=== PATIENT | male | born 1930 | race Caucasian/White ===

== ENCOUNTER 2016-10-24 12:53 | Emergency (ER) | payer OTHER ==
[~2016-10-24] VITALS: Ht 170.2 cm; Wt 74.9 kg
[~2016-10-24 12:53] MED LIST: AMIT25 PO; ATEN1TAB74 PO; FENO200C PO; GUAI600 PO; LEVO50TA51 PO; LEVO750T33 PO; LOVA40TA OR; OMEP20CA5 PO; ST JTAB PO; TAMS0.4C67 PO
[2016-10-24 12:56] VITALS: BP 107/65; PULSE 75; RESP 18; TEMP 99.1; O2SAT 95
--- NOTE | 2016-10-24 13:12 | PD ---
HPI Chief Complaint: Skin Problem Time Seen by Provider: 13:07 Travel History International Travel<30 days: No Contact w/Intl Traveler<30days: No Traveled to known affect area: No History of Present Illness HPI Patient is an 85-year-old male presenting with left forearm skin tear. Approximately one hour prior to exam the patient was walking in his bedroom and there was a chief sitting in a door that he brushed up against. This caused a skin tear. He denies any significant pain or weakness or paresthesia. Bleeding was minimal. He is on aspirin 81 mg daily. Last tetanus greater than 5 years. PFSH Past Medical History AAA: Yes Blood Disorders: No Depression: Yes Cancer: No Cardiovascular Problems: No High Cholesterol: Yes Coronary Artery Disease: Yes Diabetes: Yes Diminished Hearing: No Endocrine: No Gastrointestinal Disorders: Yes (hx of bleeding ulcers years ago,current gerd) GERD: Yes Genitourinary: No Hepatitis: No Hiatal Hernia: No Hypertension: Yes Immune Disorder: No Implanted Vascular Access Dvce: No Musculoskeletal: Yes (arthritis in the neck) Neurologic: No Psychiatric: No Reproductive: No Respiratory: No Immunizations Current: Yes Pneumonia: Yes Thyroid Disease: Yes Past Surgical History Abdominal Surgery: Yes ([place], HERNIA) AICD: No Cholecystectomy: Yes Joint Replacement: No Pacemaker: No Tonsillectomy: Yes Other Surgery: Yes (LT LUNG DRAINED A CHILD) Social History Alcohol Use: No Tobacco Use: No Substance Use: No Allergies-Medications (Allergen,Severity, Reaction): Coded Allergies: No Known Allergies (Verified , 10/24/16) Reported Meds & Prescriptions Reported Meds & Active Scripts Active Levofloxacin 750 Mg Tab 750 Mg PO DAILY 7 Days Mucinex 600 Mg Tab (Guaifenesin) 600 Mg Tabcr 600 Mg PO BID PRN Reported Flomax (Tamsulosin HCl) 0.4 Mg Cap 0.4 Mg PO DAILY Aspirin Ec Low Dose (Aspirin) 81 Mg Tab 81 Mg PO DAILY Elavil 25 Mg Tab (Amitriptyline Hcl) 25 Mg Tab 50 Mg PO DAILY Lovastatin 40 Mg Tab 80 Mg OR HS Fenofibrate Micronized (Fenofibrate) 200 Mg Cap 67 Mg PO DAILY Levoxyl (Levothyroxine Sodium) 50 Mcg Tab 50 Mcg PO DAILY Prilosec 20 mg (Omeprazole) 20 Mg Capcr 20 Mg PO DAILY Tenormin (Atenolol) 50 Mg Tab 25 Mg PO DAILY Review of Systems Musculoskeletal: No: Limited ROM Skin: Positive Other (see the history of present illness) Neurologic: No: Weakness, Focal Abnormalities, Paresthesia, Sensory Disturbance Physical Exam Narrative GENERAL: Well-developed and well-nourished adult male in no acute distress. SKIN: 4 cm curvilinear superficial skin tear to the left mid forearm. Hemostasis achieved. No deep structures are visible. No contaminants. Warm and dry. Good turgor without tenting. HEAD: Normocephalic and atraumatic. CARDIOVASCULAR: Regular rate and rhythm without murmurs, rubs, clicks or gallops. Radial pulses 2+ bilaterally. Capillary refill less than 3 seconds distal tip of all fingers of left hand. RESPIRATORY: Clear to auscultation bilaterally with symmetrical rise and fall, no distress or use of accessory muscles. MUSCULOSKELETAL: Skin tear per above. No ecchymosis, erythema, edema or warmth. Normal range of motion of left elbow, wrist and fingers. No gait disturbances. Patient freely moving all four extremities spontaneously. Extremities without clubbing, cyanosis, or edema. No obvious deformities. NEUROLOGIC: CN II-XII grossly intact. Awake and alert. Motor grossly within normal limits. Sensation intact distal tip of all fingers of left hand. Normal speech. PSYCHIATRIC: Appropriate mood and affect; insight and judgment normal. Data Data Last Documented VS Vital Signs Date Time Temp Pulse Resp B/P Pulse Ox O2 Delivery O2 Flow Rate FiO2 10/24/16 12:56 99.1 75 18 107/65 95 Orders Tetanus/Diphtheria Tox Adult (Tetanus/Di (10/24/16 13:15) MDM Medical Decision Making Medical Screen Exam Complete: Yes Emergency Medical Condition: Yes Differential Diagnosis Skin tear versus laceration versus abrasion Narrative Course Patient's 85-year-old male presenting with a fresh superficial skin tear without avulsion to the left midforearm. No contaminants or signs of neurovascular or orthopedic injury. Tetanus vaccine abated. Wound was cleansed and Steri-Strips and dressing applied.See discharge paperwork for further instructions. The plan was discussed with the patient who acknowledged their understanding and agreement. Reinforced the follow-up with primary care is critically important. Patient instructed on emergent conditions that should prompt return to ED. Diagnosis Primary Impression: Skin tear of left forearm without complication Qualified Code: S51.802A - Skin tear of left forearm without complication, initial encounter Patient Instructions: General Instructions, Skin Tear (ED) Additional Instructions: Keep bandage on for 24 hours then change daily Avoid swimming or submerging wound in any water(bath, hightower, pool, ocean, etc) Do not pick at or attempt to remove the Steri-Strips, they will fall off when wound is healed Follow-up with PCP in 2-3 days for wound check Return to the ED for any acute worsening of symptoms including swelling, warmth , spreading redness, pustular drainage, fever Disposition: 01 DISCHARGE HOME Condition: Stable Yeyo Bray III Oct 24, 2016 13:12
[2016-10-24] MEDS ORDERED: TETANUS/DIPHTHERIA TOXOID ADULT 0.5 ML VIAL IM ONE (13:15)
[2016-10-24] MEDS ORDERED: ASPI81CH CHEW (13:18)
[2016-10-24] MEDS ORDERED: CARB100C CHEW (13:18)
[2016-10-24] MEDS ORDERED: TAMS0.4C4 PO (13:18)
[2016-10-24] MEDS ORDERED: SIMV40TA PO (13:18)
[2016-10-24] MEDS ORDERED: LEVO50TA53 PO (13:18)
[2016-10-24] MEDS ORDERED: FENO54TA PO (13:18)
[2016-10-24] MEDS ORDERED: TRAZ50TA12 PO (13:18)
[2016-10-24] MEDS ORDERED: ATEN25TA PO (13:18)
[2016-10-24] MEDS ORDERED: FENO67CA PO (13:18)
[2016-10-24 13:42] VITALS: BP 160/76
== END 2016-10-24 13:43 | disposition home or self-care (01) ==
LOC: PHEFT 12:53
DX: S51.812A Laceration without foreign body of left forearm, initial encounter (principal); E78.00 Pure hypercholesterolemia, unspecified; E11.9 Type 2 diabetes mellitus without complications; I10 Essential (primary) hypertension; Z23 Encounter for immunization; W45.8XXA Other foreign body or object entering through skin, initial encounter; Y93.01 Activity, walking, marching and hiking; Y92.003 Bedroom of unspecified non-institutional (private) residence as the place of occurrence of the external cause
CPT/HCPCS: 90471; 90714

== ENCOUNTER 2016-10-26 10:09 | Emergency (ER) | payer OTHER ==
[~2016-10-26] VITALS: Ht 170.2 cm; Wt 73.1 kg
[~2016-10-26 10:09] MED LIST changes: +ASPI81CH CHEW; +ATEN25TA PO; +CARB100C CHEW; +FENO54TA PO; +FENO67CA PO; +LEVO50TA53 PO; +SIMV40TA PO; +TAMS0.4C4 PO; +TRAZ50TA12 PO
[2016-10-26 10:14] VITALS: BP 121/65; PULSE 60; RESP 16; TEMP 98; O2SAT 96
[2016-10-26] MEDS ORDERED: CEPHALEXIN MONOHYDRATE 500 MG CAP PO ONE (10:30)
[2016-10-26] MEDS ORDERED: CEPH-460 PO (10:31)
--- NOTE | 2016-10-26 10:32 | PD ---
HPI Chief Complaint: Wound/Suture/Staple Re-Check Time Seen by Provider: 10:20 Travel History International Travel<30 days: No Contact w/Intl Traveler<30days: No Traveled to known affect area: No History of Present Illness HPI 85-year-old male here for evaluation of wound check to left forearm skin tear. The patient was seen in the emergency department 2 days ago when he initially sustained a skin tear. The wound was irrigated and Steri-Strips were applied. Tetanus was updated at that time. The patient change the dressing today and noticed that the wound was bleeding. He could get the bleeding to stop, so he decided to present to the emergency department. He denies fevers or chills. There is mild tenderness to the wound. He takes a baby aspirin a day. No other antiplatelets or anticoagulants. No paresthesias or motor deficits. PFSH Past Medical History Hx Anticoagulant Therapy: Yes (81 MG ASA) AAA: Yes Blood Disorders: No Depression: Yes Cancer: No Cardiovascular Problems: Yes (HTN) High Cholesterol: Yes Coronary Artery Disease: Yes Diabetes: Yes Diminished Hearing: No Endocrine: No Gastrointestinal Disorders: Yes (hx of bleeding ulcers years ago,current gerd) GERD: Yes Genitourinary: No Hepatitis: No Hiatal Hernia: No Hypertension: Yes Immune Disorder: No Implanted Vascular Access Dvce: No Musculoskeletal: Yes (arthritis in the neck) Neurologic: No Psychiatric: No Reproductive: No Respiratory: No Immunizations Current: Yes Pneumonia: Yes Thyroid Disease: Yes Influenza Vaccination: Yes ?: Not Past Surgical History Abdominal Surgery: Yes ([place], HERNIA) AICD: No Cholecystectomy: Yes Joint Replacement: No Pacemaker: No Tonsillectomy: Yes Other Surgery: Yes (LT LUNG DRAINED A CHILD) Social History Alcohol Use: No Tobacco Use: No Substance Use: No Allergies-Medications (Allergen,Severity, Reaction): Coded Allergies: No Known Allergies (Verified , 10/26/16) Reported Meds & Prescriptions Reported Meds & Active Scripts Active Keflex (Cephalexin) 500 Mg Cap 500 Mg PO Q8H 10 Days Reported Carbamazepine 100 Mg Chew 100 Mg CHEW BID Simvastatin 40 Mg Tab 40 Mg PO HS Trazodone (Trazodone HCl) 50 Mg Tab 25 Mg PO HS Fenofibrate 54 Mg Tab 54 Mg PO HS Tamsulosin (Tamsulosin HCl) 0.4 Mg Cap 0.4 Mg PO HS Levoxyl (Levothyroxine Sodium) 50 Mcg Tab 50 Mcg PO DAILY Fenofibrate Micronized 67 Mg Cap 67 Mg PO DAILY Atenolol 25 Mg Tab 25 Mg PO DAILY Aspirin 81 Mg Chew 81 Mg CHEW DAILY Review of Systems Except as stated in HPI: all other systems reviewed are Neg Physical Exam Narrative GENERAL: Pleasant, well-developed, well-nourished, comfortable, no acute distress. SKIN: Left mid/posterior forearm skin tear with Steri-Strips in place with mild surrounding warmth and erythema, no purulent drainage, no fluctuance or induration. No signs of lymphangitis. No active bleeding. Edges are loosely approximated. CARDIOVASCULAR: Regular rate and rhythm. Bilateral distal radial pulses are brisk and equal. RESPIRATORY: No accessory muscle use. Clear to auscultation. Breath sounds equal bilaterally. GASTROINTESTINAL: Abdomen soft, non-tender, nondistended. Hepatic and splenic margins not palpable. MUSCULOSKELETAL: Skin exam as above. No obvious deformities. No clubbing. No cyanosis. No edema. NEUROLOGICAL: Awake and alert. No obvious cranial nerve deficits. Motor grossly within normal limits. Normal speech. Normal motor/sensation to left upper extremity. PSYCHIATRIC: Appropriate mood and affect; insight and judgment normal. Data Data Last Documented VS Vital Signs Date Time Temp Pulse Resp B/P Pulse Ox O2 Delivery O2 Flow Rate FiO2 10/26/16 10:14 98.0 60 16 121/65 96 Orders Cephalexin (Keflex) (10/26/16 10:30) [facility] Medical Decision Making Medical Screen Exam Complete: Yes Emergency Medical Condition: Yes Medical Record Reviewed: Yes Differential Diagnosis Cellulitis, wound infection Narrative Course Vital signs are within normal limits. The patient has a left forearm wound with Steri-Strips in place, placed 2 days ago. There is no active bleeding to the wound. There does appear to be mild cellulitis. No fluctuance or induration. No purulent drainage. Wound edges were loosely approximated. Left arm is neurovascularly intact. At this point my plan is to start the patient on Keflex. Steri-Strips will remain in place. His tetanus was updated 2 days ago. Patient was informed on when to return to the emergency department. PMD follow-up this week. He verbalizes understanding and agreement with plan. Diagnosis Primary Impression: Cellulitis of left forearm Referrals: Primary Care Physician 3 days Additional Instructions: Follow-up with your primary care physician in the next 3 days. Take antibiotics as prescribed. Do not remove Steri-Strips. They will fall off on their own. Do not submerge wound under water. Return to the emergency department for worsening symptoms or any other concerns as discussed. Scripts Cephalexin (Keflex)500 Mg [id number] Mg PO Q8H 10 Days Ref 0 Prov:Dg Wu MD 10/26/16 Dg Wu MD Oct 26, 2016 10:31
== END 2016-10-26 10:45 | disposition home or self-care (01) ==
LOC: PHED 10:09
DX: L03.114 Cellulitis of left upper limb (principal); Z79.82 Long term (current) use of aspirin; F32.9 Major depressive disorder, single episode, unspecified; I10 Essential (primary) hypertension; E78.00 Pure hypercholesterolemia, unspecified; E11.9 Type 2 diabetes mellitus without complications
CPT/HCPCS: 99282

== ENCOUNTER 2017-03-06 08:56 | Emergency (ER) | payer MEDICARE ==
[~2017-03-06] VITALS: Ht 167.6 cm; Wt 77.0 kg
[~2017-03-06 08:56] MED LIST changes: -AMIT25 PO; -ATEN1TAB74 PO; +CEPH-460 PO; -FENO200C PO; -GUAI600 PO; -LEVO50TA51 PO; -LEVO750T33 PO; -LOVA40TA OR; -OMEP20CA5 PO; -ST JTAB PO; -TAMS0.4C67 PO
[2017-03-06 09:03] VITALS: BP 115/66; PULSE 78; RESP 18; TEMP 99.4; O2SAT 94
[2017-03-06] MEDS ORDERED: TIZA2CAP3 PO (09:26)
[2017-03-06] MEDS ORDERED: TRAZ300T2 PO (09:26)
[2017-03-06] MEDS ORDERED: SODIUM CHLORIDE 0.9% FLUSH 10 ML FLUSH IVF PRN (09:30)
[2017-03-06 09:34] VITALS: O2SAT 95
--- NOTE | 2017-03-06 09:37 | PD ---
HPI Chief Complaint: General Weakness Time Seen by Provider: 09:21 Travel History International Travel<30 days: No Contact w/Intl Traveler<30days: No Traveled to known affect area: No History of Present Illness HPI This patient woke up this morning feeling weak. His weakness was generalized and lasted about an hour or so. He says that he feels like his weakness has resolved. While he was feeling weak he spoke with his daughter over the phone. He told her that he wasn't feeling so well and she called 911 and had the ambulance picked him up and bring him here for evaluation. He says he didn't feel like that was really needed. He has a temp of 99.4 but denies knowledge of fever. He has had a cough producing phlegm for the last couple of days. He lives with a roommate who is also coughing. He is not having any pain. No slurring of speech or confusion reported. Some severity is moderate. No alleviating factors. Duration of symptoms 2 days PFSH Past Medical History Hx Anticoagulant Therapy: Yes (81 MG ASA) AAA: Yes Blood Disorders: No Depression: Yes Cancer: No Cardiovascular Problems: Yes (HTN) High Cholesterol: Yes Coronary Artery Disease: Yes Diabetes: Yes Patient Takes Glucophage: No Diminished Hearing: No Endocrine: No Gastrointestinal Disorders: Yes (hx of bleeding ulcers years ago,current gerd) GERD: Yes Genitourinary: No Hepatitis: No Hiatal Hernia: No Hypertension: Yes Immune Disorder: No Implanted Vascular Access Dvce: No Insomnia: Yes Musculoskeletal: Yes (arthritis in the neck) Neurologic: No Psychiatric: No Reproductive: No Respiratory: No Immunizations Current: Yes Pneumonia: Yes Thyroid Disease: Yes Tetanus Vaccination: < 5 Years Influenza Vaccination: Yes Past Surgical History Abdominal Surgery: Yes ([place], HERNIA) AICD: No Cholecystectomy: Yes Joint Replacement: No Pacemaker: No Tonsillectomy: Yes Other Surgery: Yes (LT LUNG DRAINED A CHILD) Social History Alcohol Use: No Tobacco Use: No Substance Use: No Allergies-Medications (Allergen,Severity, Reaction): Coded Allergies: No Known Allergies (Verified , 03/06/17) Reported Meds & Prescriptions Reported Meds & Active Scripts Active Reported Trazodone (Trazodone HCl) 300 Mg Tab 25 Mg PO HS PRN Tizanidine (Tizanidine HCl) 2 Mg Cap 1 Mg PO HS PRN Carbamazepine 100 Mg Chew 100 Mg CHEW BID Simvastatin 40 Mg Tab 40 Mg PO HS Tamsulosin (Tamsulosin HCl) 0.4 Mg Cap 0.4 Mg PO HS Levoxyl (Levothyroxine Sodium) 50 Mcg Tab 50 Mcg PO DAILY Fenofibrate Micronized 67 Mg Cap 67 Mg PO DAILY Atenolol 25 Mg Tab 25 Mg PO DAILY Aspirin 81 Mg Chew 81 Mg CHEW DAILY Review of Systems General / Constitutional: No: Fever Eyes: No: Visual changes HENT: No: Headaches Cardiovascular: No: Chest Pain or Discomfort Respiratory: Positive: Cough, No: Shortness of Breath Gastrointestinal: No: Abdominal Pain Genitourinary: No: Dysuria Musculoskeletal: Positive: Weakness, No: Pain Skin: No Rash Neurologic: Positive: Weakness Psychiatric: No: Depression Endocrine: No: Polydipsia Hematologic/Lymphatic: No: Easy Bruising Physical Exam Narrative GENERAL: Well-nourished, well-developed patient in no apparent distress. SKIN: Focused skin assessment reveals no rash and nodules. Skin is Warm and dry. HEAD: Atraumatic. Normocephalic. EYES: Pupils equal and round. No scleral icterus. No injection or drainage. ENT: No nasal bleeding or discharge. Mucous membranes pink and moist. NECK: Trachea midline. No JVD. CARDIOVASCULAR: Regular rate and rhythm. No murmur appreciated. RESPIRATORY: No accessory muscle use. Clear to auscultation. Breath sounds equal bilaterally. GASTROINTESTINAL: Abdomen soft, non-tender, nondistended. Hepatic and splenic margins not palpable. MUSCULOSKELETAL: No obvious deformities. No clubbing. No cyanosis. No edema. NEUROLOGICAL: Awake and alert. No obvious cranial nerve deficits. Motor grossly within normal limits. Normal speech. PSYCHIATRIC: Appropriate mood and affect; insight and judgment normal. Data Data Last Documented VS Vital Signs Date Time Temp Pulse Resp B/P Pulse Ox O2 Delivery O2 Flow Rate FiO2 03/06/17 11:23 73 15 124/66 95 Room Air 03/06/17 09:03 99.4 Orders Electrocardiogram (03/06/17 ) Electrocardiogram (03/06/17 09:21) Basic Metabolic Panel (Bmp) (03/06/17 09:21) Ckmb (Isoenzyme) Profile (03/06/17 09:21) Complete Blood Count With Diff (03/06/17 09:21) Troponin I (03/06/17 09:21) Chest, Single Ap (03/06/17 09:21) Ecg Monitoring (03/06/17 09:21) Iv Access Insert/Monitor (03/06/17 09:21) Oximetry (03/06/17 09:21) Sodium Chloride 0.9% Flush (Ns Flush) (03/06/17 09:30) Urinalysis - C+S If Indicated (03/06/17 09:21) Carbamazepine (Tegretol) (03/06/17 09:21) CKMB (03/06/17 09:20) CKMB% (03/06/17 09:20) Labs Laboratory Tests Test 03/06/17 03/06/17 09:20 10:40 White Blood Count 11.3 TH/MM3 Red Blood Count 4.27 MIL/MM3 Hemoglobin 12.9 GM/DL Hematocrit 38.5 % Mean Corpuscular Volume 90.2 FL Mean Corpuscular Hemoglobin 30.3 PG Mean Corpuscular Hemoglobin 33.6 % Concent Red Cell Distribution Width 13.1 % Platelet Count 180 TH/MM3 Mean Platelet Volume 10.4 FL Neutrophils (%) (Auto) 83.9 % Lymphocytes (%) (Auto) 7.5 % Monocytes (%) (Auto) 7.6 % Eosinophils (%) (Auto) 0.7 % Basophils (%) (Auto) 0.3 % Neutrophils # (Auto) 9.5 TH/MM3 Lymphocytes # (Auto) 0.8 TH/MM3 Monocytes # (Auto) 0.9 TH/MM3 Eosinophils # (Auto) 0.1 TH/MM3 Basophils # (Auto) 0.0 TH/MM3 CBC Comment DIFF FINAL Differential Comment Sodium Level 136 MEQ/L Potassium Level 4.3 MEQ/L Chloride Level 104 MEQ/L Carbon Dioxide Level 24.9 MEQ/L Anion Gap 7 MEQ/L Blood Urea Nitrogen 15 MG/DL Creatinine 1.31 MG/DL Estimat Glomerular Filtration 52 ML/MIN Rate Random Glucose 124 MG/DL Calcium Level 8.6 MG/DL Total Creatine Kinase 114 U/L Creatine Kinase MB LESS THAN 0.5 NG/ML Troponin I LESS THAN 0.02 NG/ML Carbamazepine (Tegretol) Level LESS THAN 0.5 MCG/ML Urine Color YELLOW Urine Turbidity HAZY Urine pH 8.0 Urine Specific [place] 1.014 Urine Protein NEG mg/dL Urine Glucose (UA) NEG mg/dL Urine Ketones NEG mg/dL Urine Occult Blood NEG Urine Nitrite NEG Urine Bilirubin NEG Urine Urobilinogen LESS THAN 2.0 MG/DL Urine Leukocyte Esterase NEG Urine WBC LESS THAN 1 /hpf Urine Squamous Epithelial <1 /hpf Cells Urine Amorphous Sediment RARE Urine Bacteria RARE /hpf Urine Mucus FEW /lpf Microscopic Urinalysis Comment CULT NOT INDICATED MDM Medical Decision Making Medical Screen Exam Complete: Yes Emergency Medical Condition: Yes Medical Record Reviewed: Yes Differential Diagnosis Pneumonia, bronchitis, flu syndrome Narrative Course I have reviewed the patient's electronic medical record. Patient was here last October 2016 for cellulitis IV placed CBC is normal Metabolic profile is normal CK is normal Troponin is normal I reviewed his EKG which shows sinus rhythm with ectopy but no ST elevation I reviewed his chest x-ray which shows a minor infiltrate in the left base. Patient is neurologically normal and no sign of CVA. Stable for outpatient follow-up. Zithromax prescribed for his cough and minor infiltrate Diagnosis Primary Impression: Bronchopneumonia Additional Instructions: The patient was advised to follow up with their physician and return if they worsen. Med/Other Pt SpecificInfo: Prescription(s) given Scripts Azithromycin (Zithromax Z-Wojciech)250 Mg [id number] Mg PO DIRECTED #1 DSPK Ref 0 500 MG (2 tabs) day 1, then 1 tab days 2-5. Prov:Karel Jhaveri MD 03/06/17 Disposition: DISCHARGE HOME Condition: Stable Karel Jhaveri MD March 06, 2017 09:36
[2017-03-06 09:39] LABS: AUTOMATED NEUTROPHIL # 9.5 TH/MM3 (1.8-7.7); BASOPHIL % 0.3 % (0.0-2.0); EOSINOPHIL # 0.1 TH/MM3 (0-0.4); EOSINOPHIL % 0.7 % (0.0-4.0); HEMATOCRIT 38.5 % (39.0-51.0); HEMO FLAGS DIFF FINAL; LYMPH % 7.5 % (9.0-44.0); LYMPHOCYTE # 0.8 TH/MM3 (1.0-4.8); MEAN CELL VOLUME 90.2 FL (80.0-100.0); MEAN CORPUSCULAR HEMOGLOBIN 30.3 PG (27.0-34.0); MEAN CORPUSCULAR HGB CONC 33.6 % (32.0-36.0); MONO % 7.6 % (0.0-8.0); NEUT % 83.9 % (16.0-70.0); PLATELET COUNT 180 TH/MM3 (150-450); RED BLOOD COUNT 4.27 MIL/MM3 (4.50-5.90); RED CELL DISTRIBUTION WIDTH 13.1 % (11.6-17.2); WHITE BLOOD COUNT 11.3 TH/MM3 (4.0-11.0)
--- NOTE | 2017-03-06 09:44 | RADRPT ---
EXAM DATE/TIME: 03/06/2017 09:25 [facility] COMPARISON: CHEST SINGLE AP, July 28, 2016, 20:55. INDICATIONS : Fever, weakness MEDICAL HISTORY : None. SURGICAL HISTORY : Coronary artery stent. ENCOUNTER: Initial ACUITY: 1 day PAIN SCORE: 0/10 LOCATION: Bilateral chest FINDINGS: Mild basilar parenchymal opacity on the left. No evidence of effusion. Cardiac contours are satisfact ory. CONCLUSION: Slight left base infiltrate Yeyo Campos MD on March 06, 2017 at 9:42 Board Certified Radiologist. This report was verified electronically.
[2017-03-06 09:56] LABS: ANION GAP 7 MEQ/L (5-15); BICARBONATE 24.9 MEQ/L (21.0-32.0); BLOOD UREA NITROGEN 15 MG/DL (7-18); CHLORIDE 104 MEQ/L (98-107); GLOMERULAR FILTRATION RATE 52 ML/MIN (>89); POTASSIUM 4.3 MEQ/L (3.5-5.1); SODIUM (NA) 136 MEQ/L (136-145)
[2017-03-06 10:00] LABS: CREATINE KINASE 114 U/L (39-308)
[2017-03-06 10:12] LABS: CKMB LESS THAN 0.5 NG/ML (0.5-3.6)
[2017-03-06 10:52] LABS: BACTERIA, URINE RARE /hpf; BLOOD, URINE NEG (NEG); COMMENT (UR) CULT NOT INDICATED; CULTURE IF INDICATED CULT NOT INDICATED; GLUCOSE,URINE NEG (NEG); KETONE, URINE NEG (NEG); MUCUS URINE FEW /lpf (OCC); NITRITE,URINE NEG (NEG); SQUAMOUS EPITHELIAL CELL URINE <1 /hpf (0-5); URINE COLOR YELLOW (YELLW/STRAW)
[2017-03-06 11:23] VITALS: BP 124/66; PULSE 73; RESP 15; O2SAT 95
[2017-03-06] MEDS ORDERED: ZITHTAB PO (11:54)
--- NOTE | 2017-03-06 16:39 | EKG ---
Date Performed: 03/06/2017 Time Performed: 09:16:19 PTAGE: 86 years EKG: PROBABLE Sinus rhythm WITH FIRST DEGREE AV BLOCK WITH OCCASIONAL VENTRICULAR PREMATURE COMPLEXES LEFT ANTERIOR FASCICULAR BLOCK LEFT VENTRICULAR HYPERTROPHY AND ST-T CHANGE PREVIOUS TRACING : 04/22/2013 11.25 Compared to the previous tracing, change in QRS trans ition/poor R wave progression DOCTOR: Blayne Scott Interpretating Date/Time 03/06/2017 16:38:24
== END 2017-03-06 12:53 | disposition home or self-care (01) ==
LOC: NEPC 08:56
DX: J18.0 Bronchopneumonia, unspecified organism (principal); R05 Cough; R50.9 Fever, unspecified; I10 Essential (primary) hypertension; E11.9 Type 2 diabetes mellitus without complications; Z79.01 Long term (current) use of anticoagulants; R94.31 Abnormal electrocardiogram [ECG] [EKG]
CPT/HCPCS: 71010; 80048; 80156; 81001; 82550; 82552; 84484; 85025; 93005; 99285

== ENCOUNTER 2017-07-22 10:47 | Inpatient (IN) | payer MEDICARE ==
[~2017-07-22] VITALS: Ht 170.2 cm; Wt 72.0 kg
[2017-07-22] VITALS (8 sets, daily range): BP systolic 150–194; BP diastolic 81–107; PULSE 77–88; RESP 16–20; TEMP 97.6–98.4; O2SAT 94–99
[~2017-07-22 10:47] MED LIST changes: -CEPH-460 PO; -FENO54TA PO; +TIZA2CAP3 PO; +TRAZ300T2 PO; -TRAZ50TA12 PO; +ZITHTAB PO
[2017-07-22] MEDS: SODIUM CHLORIDE 0.9% FLUSH 5 ML FLUSH IV FLUSH PRN ×2 (11:09→11:50)
--- NOTE | 2017-07-22 11:19 | RADRPT ---
EXAM DATE/TIME: 07/22/2017 11:11 [facility] COMPARISON: CHEST SINGLE AP, March 06, 2017, 9:25. INDICATIONS : Palpitations and shortness of breath. MEDICAL HISTORY : None. SURGICAL HISTORY : Coronary artery stent. ENCOUNTER: Initial ACUITY: 1 day PAIN SCORE: 3/10 LOCATION: Bilateral chest FINDINGS: A single view of the chest demonstrates the lungs to be symmetrically aerated without evidence of mas s, infiltrate or effusion. The cardiomediastinal contours are unremarkable. Osseous structures are intact. CONCLUSION: No acute disease. Mitchell Roque MD on July 22, 2017 at 11:17 Board Certified Radiologist. This report was verified electronically.
[2017-07-22] MEDS ORDERED: ONDANSETRON HCL 4 MG/2 ML VIAL IV PUSH ONE (11:45)
[2017-07-22 11:51] LABS: AUTOMATED NEUTROPHIL # 6.1 TH/MM3 (1.8-7.7); BASOPHIL % 0.3 % (0.0-2.0); EOSINOPHIL # 0.1 TH/MM3 (0-0.4); EOSINOPHIL % 1.1 % (0.0-4.0); HEMO FLAGS DIFF FINAL; LYMPH % 15.3 % (9.0-44.0); LYMPHOCYTE # 1.2 TH/MM3 (1.0-4.8); MEAN CELL VOLUME 90.9 FL (80.0-100.0); MEAN CORPUSCULAR HEMOGLOBIN 30.8 PG (27.0-34.0); MEAN CORPUSCULAR HGB CONC 33.9 % (32.0-36.0); MONO % 8.6 % (0.0-8.0); NEUT % 74.7 % (16.0-70.0); PLATELET COUNT 165 TH/MM3 (150-450); RED BLOOD COUNT 4.51 MIL/MM3 (4.50-5.90); RED CELL DISTRIBUTION WIDTH 12.8 % (11.6-17.2); WHITE BLOOD COUNT 8.1 TH/MM3 (4.0-11.0)
[2017-07-22 12:00] LABS: APTT (PATIENT) 25.9 SEC (24.3-30.1); PROTHROMBIN TIME - PATIENT 10.9 SEC (9.8-11.6)
--- NOTE | 2017-07-22 12:05 | RADRPT ---
EXAM DATE/TIME: 07/22/2017 11:34 [facility] COMPARISON: CT BRAIN W/O CONTRAST, March 24, 2010, 15:32. INDICATIONS : Altered mental status. RADIATION DOSE: 37.54 CTDIvol (mGy) MEDICAL HISTORY : Cardiovascular disease. Diabetes mellitus type 2. Hypertension. SURGICAL HISTORY : Cholecystectomy. ENCOUNTER: Initial ACUITY: 1 day PAIN SCALE: 0/10 LOCATION: cranial TECHNIQUE: Multiple contiguous axial images were obtained of the head. Using automated exposure control and adj ustment of the mA and/or kV according to patient size, radiation dose was kept as low as reasonably a chievable to obtain optimal diagnostic quality images. DICOM format image data is available electro nically for review and comparison. FINDINGS: Advanced describe disease of the proximal intracranial vessels is again noted. There is arteriomegaly with calcific plaquing. The brain is stable without evidence of acute infarct or hemorrhage. There is no evidence of mass effect or edema. Extra-axial structures are unremarkable. CONCLUSION: Stable evaluation of the brain without evidence of acute infarct, hemorrhage, mass or edema. 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 This report was verified electronically.
[2017-07-22 12:07] LABS: BACTERIA, URINE RARE /hpf; BLOOD, URINE SMALL (NEG); COMMENT (UR) CATH-CULT NOT IND; CULTURE IF INDICATED CATH CULTURE NOT IND; GLUCOSE,URINE NEG (NEG); HYALINE CAST, URINE 1 /lpf (RARE); KETONE, URINE NEG (NEG); MUCUS URINE FEW /lpf (OCC); NITRITE,URINE NEG (NEG); PH, URINE 6.5 (5.0-8.5); URINE COLOR YELLOW (YELLW/STRAW)
--- NOTE | 2017-07-22 12:07 | PD ---
HPI Chief Complaint: Neuro Symptoms/ Deficits Time Seen by Provider: 10:55 Travel History International Travel<30 days: No Contact w/Intl Traveler<30days: No Traveled to known affect area: No History of Present Illness HPI 86 y/o male presents with change in mentation was last seen normal last night. Here he is repetitive and can state his name but cannot provide me with any history here. Report by the ambulance team was that he is normally alert and oriented. History is significantly limited. PFSH Past Medical History Hx Anticoagulant Therapy: Yes (ASA) AAA: Yes Blood Disorders: No Depression: Yes Cancer: No Cardiovascular Problems: Yes High Cholesterol: Yes Coronary Artery Disease: Yes Diabetes: Yes Diminished Hearing: No Endocrine: No Gastrointestinal Disorders: Yes (hx of bleeding ulcers years ago,current gerd) GERD: Yes Genitourinary: No Hepatitis: No Hiatal Hernia: No Hypertension: Yes Immune Disorder: No Implanted Vascular Access Dvce: No Insomnia: Yes Musculoskeletal: Yes (arthritis in the neck) Neurologic: No Psychiatric: No Reproductive: No Respiratory: No Immunizations Current: Yes Pneumonia: Yes Thyroid Disease: Yes Tetanus Vaccination: < 5 Years Influenza Vaccination: Yes Past Surgical History Abdominal Surgery: Yes ([place], HERNIA) AICD: No Cholecystectomy: Yes Joint Replacement: No Pacemaker: No Tonsillectomy: Yes Other Surgery: Yes (LT LUNG DRAINED A CHILD) Social History Alcohol Use: No Tobacco Use: No Substance Use: No Allergies-Medications (Allergen,Severity, Reaction): Coded Allergies: No Known Allergies (Verified , 07/22/17) Reported Meds & Prescriptions Reported Meds & Active Scripts Active Reported Trazodone (Trazodone HCl) 300 Mg Tab 25 Mg PO HS PRN Tizanidine (Tizanidine HCl) 2 Mg Cap 1 Mg PO HS PRN Carbamazepine 100 Mg Chew 100 Mg CHEW BID Simvastatin 40 Mg Tab 40 Mg PO HS Tamsulosin (Tamsulosin HCl) 0.4 Mg Cap 0.4 Mg PO HS Levoxyl (Levothyroxine Sodium) 50 Mcg Tab 50 Mcg PO DAILY Fenofibrate Micronized 67 Mg Cap 67 Mg PO DAILY Aspirin 81 Mg Chew 81 Mg CHEW DAILY Review of Systems Except as stated in HPI: all other systems reviewed are Neg Physical Exam Exam Limitations: Poor Historian Narrative GENERAL: Well-nourished, well-developed patient. SKIN: Warm and dry. HEAD: Normocephalic and atraumatic. EYES: No injection or drainage. ENT: No nasal drainage noted. NECK: Supple, trachea midline. CARDIOVASCULAR: Regular rate and rhythm RESPIRATORY: Breath sounds equal bilaterally. No accessory muscle use. GASTROINTESTINAL: Abdomen soft,nondistended. NEUROLOGICAL: Awake, alert to name. Motor and sensory grossly within normal limits. When you ask him any question he will just state his name Data Data Last Documented VS Vital Signs Date Time Temp Pulse Resp B/P (MAP) Pulse Ox O2 Delivery O2 Flow Rate FiO2 07/22/17 12:09 97.8 80 17 194/89 (124) 98 Room Air Orders Orders Electrocardiogram (07/22/17 ) Electrocardiogram (07/22/17 10:59) Ammonia (07/22/17 10:59) Complete Blood Count With Diff (07/22/17 10:59) Comprehensive Metabolic Panel (07/22/17 10:59) Creatine Kinase (Cpk) (07/22/17 10:59) Prothrombin Time / Inr (Pt) (07/22/17 10:59) Act Partial Throm Time (Ptt) (07/22/17 10:59) Troponin I (07/22/17 10:59) Thyroid Stimulating Hormone (07/22/17 10:59) Urinalysis - C+S If Indicated (07/22/17 10:59) Lactic Acid Sepsis Protocol (07/22/17 10:59) Blood Culture (07/22/17 10:59) Chest, Single Ap (07/22/17 10:59) Ct Brain W/O Iv Contrast(Rout) (07/22/17 10:59) Blood Glucose (07/22/17 10:59) Ecg Monitoring (07/22/17 10:59) Iv Access Insert/Monitor (07/22/17 10:59) Oximetry (07/22/17 10:59) Urinary Catheter Insert/Apply (07/22/17 10:59) Sodium Chloride 0.9% Flush (Ns Flush) (07/22/17 11:00) Ondansetron Inj (Zofran Inj) (07/22/17 11:45) Aspirin (Aspirin) (07/22/17 12:30) Admit Order (Ed Use Only) (07/22/17 12:42) Labs Laboratory Tests Test 07/22/17 11:11 07/22/17 11:15 Lactic Acid Level 1.4 mmol/L Ammonia 22 MCMOL/L White Blood Count 8.1 TH/MM3 Red Blood Count 4.51 MIL/MM3 Hemoglobin 13.9 GM/DL Hematocrit 41.0 % Mean Corpuscular Volume 90.9 FL Mean Corpuscular Hemoglobin 30.8 PG Mean Corpuscular Hemoglobin Concent 33.9 % Red Cell Distribution Width 12.8 % Platelet Count 165 TH/MM3 Mean Platelet Volume 10.4 FL Neutrophils (%) (Auto) 74.7 % Lymphocytes (%) (Auto) 15.3 % Monocytes (%) (Auto) 8.6 % Eosinophils (%) (Auto) 1.1 % Basophils (%) (Auto) 0.3 % Neutrophils # (Auto) 6.1 TH/MM3 Lymphocytes # (Auto) 1.2 TH/MM3 Monocytes # (Auto) 0.7 TH/MM3 Eosinophils # (Auto) 0.1 TH/MM3 Basophils # (Auto) 0.0 TH/MM3 CBC Comment DIFF FINAL Differential Comment Prothrombin Time 10.9 SEC Prothromb Time International Ratio 1.0 RATIO Activated Partial Thromboplast Time 25.9 SEC Urine Color YELLOW Urine Turbidity CLEAR Urine pH 6.5 Urine Specific [place] 1.014 Urine Protein 30 mg/dL Urine Glucose (UA) NEG mg/dL Urine Ketones NEG mg/dL Urine Occult Blood SMALL Urine Nitrite NEG Urine Bilirubin NEG Urine Urobilinogen LESS THAN 2.0 MG/DL Urine Leukocyte Esterase NEG Urine RBC 11 /hpf Urine WBC 1 /hpf Urine Bacteria RARE /hpf Urine Hyaline Casts 1 /lpf Urine Mucus FEW /lpf Microscopic Urinalysis Comment CATH-CULT NOT IND Blood Urea Nitrogen 13 MG/DL Creatinine 0.97 MG/DL Random Glucose 111 MG/DL Total Protein 7.6 GM/DL Albumin 4.0 GM/DL Calcium Level 9.1 MG/DL Alkaline Phosphatase 52 U/L Aspartate Amino Transf (AST/SGOT) 26 U/L Alanine Aminotransferase (ALT/SGPT) 17 U/L Total Bilirubin 0.6 MG/DL Sodium Level 136 MEQ/L Potassium Level 3.8 MEQ/L Chloride Level 101 MEQ/L Carbon Dioxide Level 27.5 MEQ/L Anion Gap 8 MEQ/L Estimat Glomerular Filtration Rate 73 ML/MIN Total Creatine Kinase 221 U/L Troponin I LESS THAN 0.02 NG/ML Thyroid Stimulating Hormone 3rd Gen 2.210 uIU/ML MDM Medical Decision Making Medical Screen Exam Complete: Yes Emergency Medical Condition: Yes Medical Record Reviewed: Yes (past history confirmed) Interpretation(s) CBC & BMP Diagram 07/22/17 11:15 Total Protein 7.6, Albumin 4.0, Calcium Level 9.1, Alkaline Phosphatase 52, Aspartate Amino Transf (AST/SGOT) 26, Alanine Aminotransferase (ALT/SGPT) 17, Total Bilirubin 0.6 Last 24 hours Impressions Chest X-Ray 07/22/17 1059 Signed Impressions: Service Date/Time: Saturday, July 22, 2017 11:11 - CONCLUSION: No acute disease. Mitchell Roque MD Last [address] 07/22/17 1059 Signed Impressions: Service Date/Time: Saturday, July 22, 2017 11:34 - CONCLUSION: Stable evaluation of the brain without evidence of acute infarct, hemorrhage, mass or edema. Advanced atherosclerotic vascular disease with arteriomegaly and calcific plaquing Mitchell Roque MD Chest X-Ray 07/22/17 1059 Signed Impressions: Service Date/Time: Saturday, July 22, 2017 11:11 - CONCLUSION: No acute disease. Mitchell Roque MD Differential Diagnosis Bleed, mass, stroke, UTI, hyponatremia Narrative Course Will check blood work, urinalysis, CT brain and monitor ed workup no emergent, daughter updated, agrees to admit, states patient talked with her on the phone yesterday and was acting himself. His roommate checked on him today and when they saw him for the first time today was when he was acting abnormal. Physician Communication Physician Communication dr strong agrees to admit Diagnosis Primary Impression: Altered mental status Qualified Codes: R41.82 - Altered mental status, unspecified Additional Impression: Expressive aphasia Admitting Information Admitting Physician Requests: Observation Mady Holder MD Jul 22, 2017 12:07
[2017-07-22 12:10] LABS: ANION GAP 8 MEQ/L (5-15); AST (GOT) 26 U/L (15-37); BICARBONATE 27.5 MEQ/L (21.0-32.0); BLOOD UREA NITROGEN 13 MG/DL (7-18); CHLORIDE 101 MEQ/L (98-107); GLOMERULAR FILTRATION RATE 73 ML/MIN (>89); POTASSIUM 3.8 MEQ/L (3.5-5.1); SODIUM (NA) 136 MEQ/L (136-145)
[2017-07-22 12:11] LABS: ALT (GPT) 17 U/L (12-78)
[2017-07-22 12:20] LABS: ALKALINE PHOSPHATASE 52 U/L (45-117); CREATINE KINASE 221 U/L (39-308); TOTAL BILIRUBIN ADULT 0.6 MG/DL (0.2-1.0)
[2017-07-22] MEDS ORDERED: ASPIRIN 325 MG TAB PO ONE (12:30)
[2017-07-22] MEDS ORDERED: ENALAPRILAT 1.25 MG/ML VIAL IV PUSH PRN (13:15)
[2017-07-22] MEDS ORDERED: NALOXONE HCL 0.4 MG/ML AMP IV PUSH PRN (13:15)
[2017-07-22] MEDS ORDERED: SODIUM CHLORIDE 0.9% FLUSH 10 ML FLUSH IV FLUSH PRN (13:15)
[2017-07-22] MEDS ORDERED: ACETAMINOPHEN 325 MG TAB PO PRN ×2 (13:15)
--- NOTE | 2017-07-22 14:14 | HHI.HP ---
[facility] Annemarie Benito MD Admission Diagnosis altered mental status Diagnoses: Chief Complaint: Altered mental status Travel History International Travel<30 Days: No Contact w/Intl Traveler <30 Da: No Traveled to Known Affected Are: No History of Present Illness Written by Chon Lisa, acting as scribe for Dr. Treviño on 07/22/17 at 14:14. 86-year-old male with past medical history of HTN, HLD, CAD, hypothyroidism, depression, BPH, pituitary adenoma who presented for altered mental status. Patient is currently oriented to self, but does not know the year or the president. Son-in-law at bedside assists some with history was reviewed and the medical record. The patient is normally quite functional, oriented at baseline and talk to his daughter on the phone last night and was reportedly normal at that time. The patient's roommate found him altered and unable to perform a sentence this morning. Currently the patient keeps stating that he is "not good", but cannot elaborate. No masses he is having any pain he states "I don't know". He denies any shortness of breath, fever, rash. The patient replies with vague answers when asked if he has a headache, chest pain, constipation, or vision changes. The patient's blood pressure was elevated today in the ED. Son-in-law reports patient is compliant with his medications. EMR this shows the patient had a pituitary adenoma in 2008 that he elected against surgery. The patient's son-in-law states that he had a similar episode where he was admitted here about 6 months ago and states that the patient improved after 4 days, unsure what the reason was. Review of Systems Except as stated in HPI: all other systems reviewed are Neg Past Family Social History Past Medical History Hypertension Hyperlipidemia Coronary artery disease Hypothyroidism Depression BPH Pituitary adenoma Past Surgical History Cholecystectomy Hernia repair Tonsillectomy Reported Medications Reported Meds & Active Scripts Active Reported Trazodone (Trazodone HCl) 300 Mg Tab 25 Mg PO HS PRN Tizanidine (Tizanidine HCl) 2 Mg Cap 1 Mg PO HS PRN Carbamazepine 100 Mg Chew 100 Mg CHEW BID Simvastatin 40 Mg Tab 40 Mg PO HS Tamsulosin (Tamsulosin HCl) 0.4 Mg Cap 0.4 Mg PO HS Levoxyl (Levothyroxine Sodium) 50 Mcg Tab 50 Mcg PO DAILY Fenofibrate Micronized 67 Mg Cap 67 Mg PO DAILY Aspirin 81 Mg Chew 81 Mg CHEW DAILY Allergies: Coded Allergies: No Known Allergies (Verified , 07/22/17) Active Ordered Medications Current Medications Medications (Trade) Dose Ordered Sig/Marion Route Start Time Stop Time Status Last Admin (NS Flush) 2 ml UNSCH PRN IV FLUSH 07/22/17 11:00 07/22/17 11:50 (Aspirin Chew) 81 mg DAILY CHEW 07/22/17 13:15 UNV (TEGretol CHEW) 100 mg BID CHEW 07/22/17 21:00 UNV (Synthroid) 50 mcg DAILY PO 07/22/17 13:15 UNV (Flomax) 0.4 mg HS PO 07/22/17 21:00 UNV Non-Formulary Medication 67 mg DAILY PO 07/23/17 09:00 UNV Non-Formulary Medication 40 mg HS PO 07/22/17 21:00 UNV (Apresoline Inj) 10 mg ONCE ONCE IV PUSH 07/22/17 13:15 07/22/17 13:16 UNV Sodium Chloride 1,000 ml @ 75 mls/hr [id number] IV 07/22/17 13:15 UNV (NS Flush) 2 ml UNSCH PRN IV FLUSH 07/22/17 13:15 UNV (NS Flush) 2 ml BID IV FLUSH 07/22/17 21:00 UNV (Tylenol) 650 mg Q4H PRN PO 07/22/17 13:15 UNV (Lovenox Inj) 40 mg Q24H SQ 07/22/17 13:15 UNV (Tylenol) 650 mg Q6H PRN PO 07/22/17 13:15 UNV (Narcan Inj) 0.4 mg UNSCH PRN IV PUSH 07/22/17 13:15 UNV (Marisela-Colace) 1 tab BID PO 07/22/17 21:00 UNV (Vasotec Inj) 1.25 mg Q6H PRN IV PUSH 07/22/17 13:15 UNV Family History Unable to obtain secondary to current mental status Social History No alcohol, tobacco, or drug use Ambulates using a cane Lives with a roommate Physical Exam Vital Signs Vital Signs Date Time Temp Pulse Resp B/P (MAP) Pulse Ox O2 Delivery O2 Flow Rate FiO2 07/22/17 13:53 97.9 77 16 166/81 (109) 99 Room Air 07/22/17 12:09 97.8 80 17 194/89 (124) 98 Room Air 07/22/17 11:06 17 98 Room Air 07/22/17 11:01 87 17 98 Room Air 07/22/17 10:56 97.8 80 17 188/107 (134) 98 Physical Exam GENERAL: Well-developed well-nourished. In no acute distress. Confused and oriented only to self. SKIN: Warm and dry. No lesions noted. HEENT: Normocephalic. Pupils equal and round and reactive to light. Mucous membranes pink and moist. CARDIOVASCULAR: Regular rate and rhythm. No murmur appreciated. RESPIRATORY: No accessory muscle use. Clear to auscultation. Breath sounds equal bilaterally. GASTROINTESTINAL: Abdomen soft, non-tender, nondistended. Bowel sounds x4. MUSCULOSKELETAL: No obvious deformities. No clubbing or cyanosis. No edema. NEUROLOGICAL: Awake and alert. No focal neurological deficits. Moves upper and lower extremities spontaneously. Follow some commands. Not cooperative with strength testing. Normal but somewhat nonsensical speech. PSYCHIATRIC: Appropriate mood and affect; insight and judgment normal. Laboratory Laboratory Tests Test 07/22/17 11:11 07/22/17 11:15 Lactic Acid Level 1.4 Ammonia 22 White Blood Count 8.1 Red Blood Count 4.51 Hemoglobin 13.9 Hematocrit 41.0 Mean Corpuscular Volume 90.9 Mean Corpuscular Hemoglobin 30.8 Mean Corpuscular Hemoglobin Concent 33.9 Red Cell Distribution Width 12.8 Platelet Count 165 Mean Platelet Volume 10.4 Neutrophils (%) (Auto) 74.7 Lymphocytes (%) (Auto) 15.3 Monocytes (%) (Auto) 8.6 Eosinophils (%) (Auto) 1.1 Basophils (%) (Auto) 0.3 Neutrophils # (Auto) 6.1 Lymphocytes # (Auto) 1.2 Monocytes # (Auto) 0.7 Eosinophils # (Auto) 0.1 Basophils # (Auto) 0.0 CBC Comment DIFF FINAL Differential Comment Prothrombin Time 10.9 Prothromb Time International Ratio 1.0 Activated Partial Thromboplast Time 25.9 Urine Color YELLOW Urine Turbidity CLEAR Urine pH 6.5 Urine Specific [place] 1.014 Urine Protein 30 Urine Glucose (UA) NEG Urine Ketones NEG Urine Occult Blood SMALL Urine Nitrite NEG Urine Bilirubin NEG Urine Urobilinogen LESS THAN 2.0 Urine Leukocyte Esterase NEG Urine RBC 11 Urine WBC 1 Urine Bacteria RARE Urine Hyaline Casts 1 Urine Mucus FEW Microscopic Urinalysis Comment CATH-CULT NOT IND Blood Urea Nitrogen 13 Creatinine 0.97 Random Glucose 111 Total Protein 7.6 Albumin 4.0 Calcium Level 9.1 Alkaline Phosphatase 52 Aspartate Amino Transf (AST/SGOT) 26 Alanine Aminotransferase (ALT/SGPT) 17 Total Bilirubin 0.6 Sodium Level 136 Potassium Level 3.8 Chloride Level 101 Carbon Dioxide Level 27.5 Anion Gap 8 Estimat Glomerular Filtration Rate 73 Total Creatine Kinase 221 Troponin I LESS THAN 0.02 Thyroid Stimulating Hormone 3rd Gen 2.210 Date/Time Source Procedure Growth Status 07/22/17 11:15 Blood Peripheral Aerobic Blood Culture Pending Received 07/22/17 11:15 Blood Peripheral Anaerobic Blood Culture Pending Received Result Diagram: 07/22/17 1115 07/22/17 1115 Imaging Last Impressions Head CT 07/22/17 1059 Signed Impressions: Service Date/Time: Saturday, July 22, 2017 11:34 - CONCLUSION: Stable evaluation of the brain without evidence of acute infarct, hemorrhage, mass or edema. Advanced atherosclerotic vascular disease with arteriomegaly and calcific plaquing Mitchell Roque MD Chest X-Ray 07/22/17 1059 Signed Impressions: Service Date/Time: Saturday, July 22, 2017 11:11 - CONCLUSION: No acute disease. Mitchell Roque MD Caprini VTE Risk Assessment Caprini VTE Risk Assessment: Mod/High Risk (score >= 2) Caprini Risk Assessment Model Point Value = 1 Point Value = 2 Point Value = 3 Point Value = 5 Age 41-60 Minor surgery BMI > 25 kg/m2 Swollen legs Varicose veins or History of unexplained or recurrent spontaneous Oral contraceptives or hormone replacement Sepsis (< 1 month) Serious lung disease, including pneumonia (< 1 month) Abnormal pulmonary function Acute myocardial infarction Congestive heart failure (< 1 month) History of inflammatory bowel disease Medical patient at bed rest Age 61-74 Arthroscopic surgery Major open surgery (> 45 min) Laparoscopic surgery (> 45 min) Malignancy Confined to bed (> 72 hours) Immobilizing plaster cast Central venous access Age >= 75 History of VTE Family history of VTE Factor V Leiden Prothrombin [id number] Lupus anticoagulant Anticardiolipin antibodies Elevated serum homocysteine Heparin-induced thrombocytopenia Other congenital or acquired thrombophilia Stroke (< 1 month) Elective arthroplasty Hip, pelvis, or leg fracture Acute spinal cord injury (< 1 month) Prophylaxis Regimen Total Risk Factor Score Risk Level Prophylaxis Regimen 0-1 Low Early ambulation 2 Moderate Order ONE of the following: *Sequential Compression Device (SCD) *Heparin 5000 units SQ BID 3-4 Higher Order ONE of the following medications: *Heparin 5000 units SQ TID *Enoxaparin/Lovenox 40 mg SQ daily (WT < 150 kg, CrCl > 30 mL/min) *Enoxaparin/Lovenox 30 mg SQ daily (WT < 150 kg, CrCl > 10-29 mL/min) *Enoxaparin/Lovenox 30 mg SQ BID (WT < 150 kg, CrCl > 30 mL/min) AND/OR *Sequential Compression Device (SCD) 5 or more Highest Order ONE of the following medications: *Heparin 5000 units SQ TID (Preferred with Epidurals) *Enoxaparin/Lovenox 40 mg SQ daily (WT < 150 kg, CrCl > 30 mL/min) *Enoxaparin/Lovenox 30 mg SQ daily (WT < 150 kg, CrCl > 10-29 mL/min) *Enoxaparin/Lovenox 30 mg SQ BID (WT < 150 kg, CrCl > 30 mL/min) AND *Sequential Compression Device (SCD) Assessment and Plan Assessment and Plan 86-year-old male with past medical history of HTN, HLD, CAD, hypothyroidism, depression, BPH, pituitary adenoma who presented for altered mental status Acute metabolic encephalopathy: Unclear etiology. Possible hypertensive encephalopathy. Possible underlying neurological cause. Reviewed: Head CT stable with age-related changes. Afebrile with no leukocytosis. Chest x-ray and UA unremarkable. Ammonia within normal limits. -Check labs including serial troponins, B12, vitamin D -Check brain MRI, carotid ultrasound, echocardiogram -Monitor on telemetry. Neuro checks -Sitter for now -IVF -PT/OT/ST -EEG -Hold tizanidine, trazodone, and carbamazepine. Accelerated hypertension: Could contribute to symptoms as above. Given IV hydralazine and BP improving some to 166/81. -Continue home tamsulosin. -Vasotec as needed Hypothyroidism: TSH within normal limits. -Continue home levothyroxine DVT prophylaxis: Lovenox Code Status Patient's son-in-law states that the patient does not have a DNR and believes he would want to be full code Discussed Condition With Patient with son-in-law at bedside, ED staff Attending Statement This note was transcribed by georgina Lisa. I, Dr. Amandeep Treviño personally performed the history, physical exam, and medical decision making; and confirmed the accuracy of the information in the transcribed note. Authenticated by Dr. Amandeep Treviño on 07/22/17 at 16:01. hCon Lisa Jul 22, 2017 14:14 Amandeep Treviño DO Jul 22, 2017 16:01
--- NOTE | 2017-07-22 14:19 | ECHRPT ---
Indication: CVA/TIA CONCLUSIONS The left ventricular systolic function is low normal with an estimated ejection fraction in the rang e of 50- 55%. Trace aortic valve regurgitation. There is trace tricuspid valve regurgitation. BP: / HR: 100 Rhythm: Other MEASUREMENTS (Male / Female) Normal Values Technical Quality:Poor 2D ECHO LV Diastolic Diameter PLAX 4.6 cm 4.2 - 5.9 / 3.9 - 5.3 cm LV Systolic Diameter PLAX 3.5 cm IVS Diastolic Thickness 1.1 cm 0.6 - 1.0 / 0.6 - 0.9 cm LVPW Diastolic Thickness 1.1 cm 0.6 - 1.0 / 0.6 - 0.9 cm LV Relative Wall Thickness 0.5 LVOT Diameter 2.3 cm M-MODE Aortic Root Diameter MM 4.6 cm LA Systolic Diameter MM 2.9 cm LA Ao Ratio MM 0.6 AV Cusp Separation MM 2.3 cm DOPPLER AV Peak Velocity 137.0 cm/s AV Peak Gradient 7.5 mmHg AI Peak Velocity 503.0 cm/s AI Peak Gradient 101.2 mmHg AI Pressure Half Time 680.0 ms LVOT Peak Velocity 121.0 cm/s LVOT Peak Gradient 5.9 mmHg AV Area Cont Eq pk 3.7 cm Mitral E Point Velocity 117.0 cm/s Mitral A Point Velocity 77.5 cm/s Mitral E to A Ratio 1.5 LV E' Lateral Velocity 7.1 cm/s Mitral E to LV E' Lateral Ratio 16.4 LV E' Septal Velocity 5.4 cm/s Mitral E to LV E' Septal Ratio 21.8 PV Peak Velocity 107.0 cm/s PV Peak Gradient 4.6 mmHg FINDINGS LEFT VENTRICLE The left ventricular systolic function is low normal with an estimated ejection fraction in the rang e of 50- 55%. Wall thickness is measured at the upper limits of normal. Normal left ventricular size. RIGHT VENTRICLE Normal right ventricular size and systolic function. LEFT ATRIUM The left atrial size is normal. RIGHT ATRIUM The right atrial size is normal. ATRIAL SEPTUM There was redundancy of the interatrial septum, with borderline criterial for septal aneurysm (benig n finding). AORTA The aortic root and proximal ascending aorta are normal in size on limited imaging. MITRAL VALVE Structurally normal mitral valve. No mitral valve stenosis or regurgitation. AORTIC VALVE The aortic valve is not well visualized. Trace aortic valve regurgitation. No aortic valve stenosis. TRICUSPID VALVE Structurally normal tricuspid valve. There is trace tricuspid valve regurgitation. No tricuspid valve stenosis. PULMONARY VALVE The pulmonary valve is not well visualized. VESSELS The inferior vena cava is normal in size. PERICARDIUM No pericardial effusion. Blayne Scott DO (Electronically Signed) Final Date:22 July 2017 14:18
[2017-07-22] MEDS: SODIUM CHLOR 0.9% 1000 ML INJ 1,000 ML IV SCH (14:29)
[2017-07-22] MEDS ORDERED: hydrALAZINE HCL 20 MG/ML VIAL IV PUSH ONE (15:00)
[2017-07-22] MEDS: ASPIRIN 81 MG CHEW TAB CHEW SCH (15:00)
--- NOTE | 2017-07-22 15:13 | RADRPT ---
EXAM DATE/TIME: 07/22/2017 14:03 [facility] COMPARISON: No previous studies available for comparison. INDICATIONS : Cerebrovascular accident. MEDICAL HISTORY : Aneurysm, abdominal. Hypercholesterolemia. Arthritis. Thyroid disease. Coronary artery disease. Diabe may. Pneumonia. Bleeding ulcers. GERD. HTN. Depression. SURGICAL HISTORY : Tonsillectomy. Cholecystectomy. Hernia repair. Left lung drained as a child. ENCOUNTER: Initial ACUITY: 1 day PAIN SCORE: 10 LOCATION: Bilateral neck PEAK SYSTOLIC VELOCITIES (cm/sec): ICA/CCA RATIO: Right: 0.8 Left: 0.6 ICA: Right: 62 Left: 77 CCA: Right: 74 Left: 129 ECA: Right: 96 Left: 140 VERTEBRAL: Right: 54 antegrade Left: 54 antegrade Elevated flow velocities and ICA/CCA ratios have been found to correlate with increased degrees of vessel stenosis, calculated as percentage of diameter relative to a normal segment of distal ICA/CCA FINDINGS: RIGHT CAROTID: There is mild calcified atherosclerotic plaquing at the bifurcation. The. The waveforms are within n ormal limits. LEFT CAROTID: There is calcified atherosclerotic plaquing at the bifurcation. The waveforms are within normal limit s. VERTEBRAL ARTERIES: Antegrade flow is seen in both vertebral arteries. MISCELLANEOUS: None. CONCLUSION: 1. No hemodynamically significant carotid artery stenosis identified. 2. Calcified atherosclerotic plaquing of the bifurcations. Kush Fernandez MD on July 22, 2017 at 15:10 Board Certified Radiologist. This report was verified electronically.
[2017-07-22] MEDS: ENOXAPARIN SODIUM 40 MG/0.4 ML SYRINGE SQ SCH (17:33)
[2017-07-22] MEDS: LEVOTHYROXINE SODIUM 50 MCG TAB PO SCH (17:33)
--- NOTE | 2017-07-22 19:13 | RADRPT ---
EXAM DATE/TIME: 07/22/2017 18:32 [facility] COMPARISON: CT BRAIN W/O CONTRAST, July 22, 2017, 11:34. INDICATIONS : Altered mental status. CVA. MEDICAL HISTORY : Aneurysm, abdominal. Arthritis. Hypertension. SURGICAL HISTORY : Umbilical hernia repair. Cholecystectomy. Tonsillectomy. ENCOUNTER: Subsequent ACUITY: 1 day PAIN SCORE: 0/10 LOCATION: head. TECHNIQUE: Multiplanar, multisequence MRI of the brain was performed without contrast. FINDINGS: CEREBRUM: The ventricles are normal for age. There is bilateral cortical atrophy and chronic white matter yuen es. No evidence of midline shift, mass lesion, hemorrhage or acute infarction. No extraaxial fluid c ollections are seen. The pituitary gland and suprasellar cistern are normal in configuration. WHITE MATTER: Chronic white matter changes are noted bilaterally. POSTERIOR FOSSA: The cerebellum and brainstem are intact. The 4th ventricle is midline. The cerebellopontine angle is unremarkable. The cerebellar tonsils are normal in position. DIFFUSION IMAGING: No focal areas of restricted diffusion are seen. No evidence of acute infarction. EXTRACRANIAL: The visualized portions of the orbits and paranasal sinuses are unremarkable. CONCLUSION: 1. Bilateral cortical atrophy and chronic white matter changes. 2. No acute intracranial pathology. Josue Delgado MD on July 22, 2017 at 19:10 Board Certified Radiologist. This report was verified electronically.
[2017-07-22] MEDS: PRAVASTATIN SOD 80 MG TAB PO SCH (21:36)
[2017-07-22] MEDS: DOCUSATE SODIUM 50 MG/SENNA 8.6 MG TAB PO SCH (21:36)
[2017-07-22] MEDS: TAMSULOSIN HCL 0.4 MG CAP PO SCH (21:36)
[2017-07-22] MEDS: SODIUM CHLORIDE 0.9% FLUSH 10 ML FLUSH IV FLUSH SCH (21:36)
[2017-07-23] VITALS (7 sets, daily range): BP systolic 132–162; BP diastolic 77–90; PULSE 71–93; RESP 20; TEMP 97.2–98.5; O2SAT 94–96
[2017-07-23 01:18] LABS: AUTOMATED NEUTROPHIL # 5.5 TH/MM3 (1.8-7.7); BASOPHIL % 0.3 % (0.0-2.0); EOSINOPHIL # 0.1 TH/MM3 (0-0.4); EOSINOPHIL % 1.2 % (0.0-4.0); HEMATOCRIT 39.1 % (39.0-51.0); HEMO FLAGS DIFF FINAL; LYMPH % 18.8 % (9.0-44.0); LYMPHOCYTE # 1.5 TH/MM3 (1.0-4.8); MEAN CELL VOLUME 89.9 FL (80.0-100.0); MEAN CORPUSCULAR HEMOGLOBIN 30.9 PG (27.0-34.0); MEAN CORPUSCULAR HGB CONC 34.3 % (32.0-36.0); MONO % 9.8 % (0.0-8.0); NEUT % 69.9 % (16.0-70.0); PLATELET COUNT 185 TH/MM3 (150-450); RED BLOOD COUNT 4.35 MIL/MM3 (4.50-5.90); WHITE BLOOD COUNT 7.9 TH/MM3 (4.0-11.0)
[2017-07-23 02:18] LABS: ALKALINE PHOSPHATASE 46 U/L (45-117); ALT (GPT) 18 U/L (12-78); ANION GAP 6 MEQ/L (5-15); AST (GOT) 21 U/L (15-37); BICARBONATE 26.7 MEQ/L (21.0-32.0); BLOOD UREA NITROGEN 10 MG/DL (7-18); CHLORIDE 101 MEQ/L (98-107); GLOMERULAR FILTRATION RATE 78 ML/MIN (>89); POTASSIUM 3.6 MEQ/L (3.5-5.1); SODIUM (NA) 134 MEQ/L (136-145)
[2017-07-23] MEDS: LEVOTHYROXINE SODIUM 50 MCG TAB PO SCH (05:36)
[2017-07-23] MEDS: SODIUM CHLOR 0.9% 1000 ML INJ 1,000 ML IV SCH ×2 (05:37→18:04)
[2017-07-23] MEDS: SODIUM CHLORIDE 0.9% FLUSH 10 ML FLUSH IV FLUSH SCH ×2 (09:00→20:59)
--- NOTE | 2017-07-23 09:52 | HHI.PR ---
Subjective Remarks The patient was feeling back to his old self. He had no acute complaints. He said he knew where he was and what the date was. His daughter was at the bedside and their questions were answered. He was working with therapy. His daughter states that he recently started a week long course of IM B12 injections by his neurologist and she is concerned that that contributed to his symptoms. Objective Vitals Vital Signs Date Time Temp Pulse Resp B/P (MAP) Pulse Ox O2 Delivery O2 Flow Rate FiO2 07/23/17 04:00 Room Air 07/23/17 04:00 98.5 93 20 132/77 (95) 95 07/23/17 00:00 Room Air 07/23/17 00:00 98.0 84 20 154/83 (106) 94 07/22/17 20:34 81 07/22/17 20:00 Room Air 07/22/17 20:00 97.6 80 20 159/88 (111) 97 07/22/17 16:30 98.4 88 20 162/81 (108) 94 07/22/17 14:30 97.8 78 16 150/83 (105) 100 07/22/17 13:53 97.9 77 16 166/81 (109) 99 Room Air 07/22/17 12:09 97.8 80 17 194/89 (124) 98 Room Air 07/22/17 11:06 17 98 Room Air 07/22/17 11:01 87 17 98 Room Air 07/22/17 10:56 97.8 80 17 188/107 (134) 98 I/O 07/22/17 07/22/17 07/22/17 07/23/17 07/23/17 07/23/17 06:59 14:59 22:59 06:59 14:59 22:59 Intake Total 1982 ml Output Total 300 ml Balance 1682 ml Intake IV Total 1982 ml Output Urine Total 300 ml # Bowel Movements 0 Result Diagram: 07/23/1710707/23/17107 Imaging Last Impressions Head CT 07/22/17 1059 Signed Impressions: Service Date/Time: Saturday, July 22, 2017 11:34 - CONCLUSION: Stable evaluation of the brain without evidence of acute infarct, hemorrhage, mass or edema. Advanced atherosclerotic vascular disease with arteriomegaly and calcific plaquing Mitchell Roque MD Chest X-Ray 07/22/17 1059 Signed Impressions: Service Date/Time: Saturday, July 22, 2017 11:11 - CONCLUSION: No acute disease. Mitchell Roque MD Carotid Artery Ultrasound 07/22/17 0000 Signed Impressions: Service Date/Time: Saturday, July 22, 2017 14:03 - CONCLUSION: 1. No hemodynamically significant carotid artery stenosis identified. 2. Calcified atherosclerotic plaquing of the bifurcations. Kush Fernandez MD Brain MRI 07/22/17 0000 Signed Impressions: Service Date/Time: Saturday, July 22, 2017 18:32 - CONCLUSION: 1. Bilateral cortical atrophy and chronic white matter changes. 2. No acute intracranial pathology. Josue Delgado MD Objective Remarks GENERAL: Well-developed well-nourished. In no acute distress. SKIN: Warm and dry. No lesions noted. HEENT: Normocephalic. Pupils equal and round and reactive to light. Mucous membranes pink and moist. CARDIOVASCULAR: Regular rate and rhythm. No murmur appreciated. RESPIRATORY: No accessory muscle use. Clear to auscultation. Breath sounds equal bilaterally. GASTROINTESTINAL: Abdomen soft, non-tender, nondistended. Bowel sounds x4. MUSCULOSKELETAL: No obvious deformities. No clubbing or cyanosis. No edema. NEUROLOGICAL: Alert and oriented. No focal neurological deficits. Moves upper and lower extremities spontaneously. Normal speech. PSYCHIATRIC: Appropriate mood and affect; insight and judgment normal. Medications and IVs Current Medications Medications (Trade) Dose Ordered Sig/Marion Route Start Time Stop Time Status Last Admin (Aspirin Chew) 81 mg DAILY CHEW 07/22/17 15:00 (Synthroid) 50 mcg DAILY@0600 PO 07/22/17 15:00 07/23/17 05:36 (Flomax) 0.4 mg HS PO 07/22/17 21:00 07/22/17 21:36 (Tricor) 48 mg DAILY PO 07/23/17 09:00 (Pravachol) 80 mg HS PO 07/22/17 21:00 07/22/17 21:36 Sodium Chloride 1,000 ml @ 75 mls/hr [id number] IV 07/22/17 13:15 07/23/17 05:37 (NS Flush) 2 ml UNSCH PRN IV FLUSH 07/22/17 13:15 (NS Flush) 2 ml BID IV FLUSH 07/22/17 21:00 07/22/17 21:36 (Tylenol) 650 mg Q4H PRN PO 07/22/17 13:15 (Lovenox Inj) 40 mg Q24H SQ 07/22/17 15:00 07/22/17 17:33 (Tylenol) 650 mg Q6H PRN PO 07/22/17 13:15 (Narcan Inj) 0.4 mg UNSCH PRN IV PUSH 07/22/17 13:15 (Marisela-Colace) 1 tab BID PO 07/22/17 21:00 07/22/17 21:36 (Vasotec Inj) 1.25 mg Q6H PRN IV PUSH 07/22/17 13:15 (Flu (Quadrivalent) Vaccine Inj) 0.5 ml ONCE ONCE IM 07/23/17 10:00 07/23/17 10:01 (Norvasc) 5 mg DAILY PO 07/23/17 09:45 UNV A/P Assessment and Plan 86-year-old male with past medical history of HTN, HLD, CAD, hypothyroidism, depression, BPH, pituitary adenoma who presented for altered mental status Acute metabolic encephalopathy Resolved. Possibly s/t hypertensive encephalopathy or medication side effect. Reviewed: Head CT stable with age-related changes. Afebrile with no leukocytosis. Chest x-ray and UA unremarkable. Ammonia within normal limits. MRI without acute abnormality. Carotid US without significant blockage. -Check echocardiogram. -Monitor on telemetry. Neuro checks. - s/p IVF. - PT/OT/ST. - EEG. - Hold tizanidine. Pt no longer takes trazodone and carbamazepine. Accelerated hypertension Could contribute to symptoms as above. Given IV hydralazine and BP improved. He used to be on atenolol as an outpt. - start amlodipine 5 mg daily and monitor. - Continue home tamsulosin. - Vasotec as needed. Hypothyroidism TSH within normal limits. - Continue home levothyroxine. DVT prophylaxis: Lovenox Discharge Planning Anticipate d/c home in AM. Amandeep Trevioñ DO Jul 23, 2017 09:52
[2017-07-23] MEDS ORDERED: INFLUENZA VIRUS VACCINE (QUADRIVALENT) 0.5 ML SYR IM ONE (10:00)
[2017-07-23] MEDS: FENOFIBRATE 48 MG TAB PO SCH (10:05)
[2017-07-23] MEDS: DOCUSATE SODIUM 50 MG/SENNA 8.6 MG TAB PO SCH ×2 (10:06→20:59)
[2017-07-23] MEDS: ASPIRIN 81 MG CHEW TAB CHEW SCH (10:06)
[2017-07-23 11:16] LABS: HDL CHOLESTEROL 51.4 MG/DL (40.0-60.0)
[2017-07-23] MEDS ORDERED: POTASSIUM CHLORIDE 25 MEQ EFFERVESCENT TAB PO ONE (12:00)
[2017-07-23] MEDS: amLODIPine BESYLATE 5 MG TAB PO SCH (13:28)
--- NOTE | 2017-07-23 17:37 | MB ---
cc: KENAN HOLGUIN M.D. DATE OF CONSULTATION: 07/23/2017 REASON FOR CONSULTATION: Mental status changes HISTORY OF PRESENT ILLNESS: The patient is an 86 year-old right-handed male with hypertension, hypercholesterolemia, otherwise he says he has been very healthy. For the last six months or so ago, he has been living with a friend in a mobile home. He was living at his house with his before then, but she had to go into a [facility]. He used to be a heavy drinker but quit about 4-6 years ago, just beer only he tells me. I am asked to see him for mental status change. REVIEW OF SYSTEMS: He denied any history of diabetes, MO, CABG, cardiac arrhythmia, stent, angioplasty, A-fib, Coumadin, renal, hepatic or pulmonary disease, thyroid disease, lupus, ulcer, cancer, seizure or stroke. SOCIAL HISTORY Not a smoker or drinker, lives with his friend. FAMILY HISTORY: Negative for cancer, seizure or stroke. MEDICATIONS Medications at home: 1. Trazodone 300 mg at night. 2. Tizanidine 2 mg at night p.r.n. 3. Tegretol 100 b.i.d. 4. Simvastatin. 5. Tamsulosin. 6. Thyroid medicine. 7. Fenofibrate. 8. Baby aspirin. ALLERGIES: NO KNOWN DRUG ALLERGIES. PAST MEDICAL HISTORY 1. CAD. 2. Some hypothyroidism. 3. Some depression. 4. Pituitary adenoma. PHYSICAL EXAMINATION: Afebrile, 93, 20, 132/77. Highest blood pressure 194/89. There were no carotid bruits. Heart: Regular rhythm. I do not detect a murmur. Neurologic: Pupils were equal. Visual moe full. Extraocular movements intact without nystagmus. Face symmetrical, normal sensation, tongue was midline. There is no drift. He had normal strength in upper and lower extremities bilaterally. DTRs are trace throughout, toes are downgoing bilaterally. Pinprick intact throughout. There is vibratory sense. He is not ataxic on [id number]. Speech is fluent. He is not aphasic. He can repeat well. Short-term memory, however was 0/3 and two minutes, 2/3 at 4 minutes. He knew the year, although he said it was 1916, he was able to correct himself when I pointed out the problem. He did not know the month. He knows his address, he knew where he was. He is awake and alert. Speech is fluent. He is not aphasic. LABORATORY DATA: CBC, essentially unremarkable. Sed rate was 15 back in 2008. Basic metabolic profile, essentially unremarkable. LFTs normal. CPK, troponin, albumin, LDL cholesterol, B12, thyroid, all normal. EUA essentially unremarkable, except for 11 red cells. Coags normal. IMAGING STUDIES: Chest x-ray, negative. CT scan of the brain, normal. 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 Carotid ultrasound, negative. IMPRESSION: He does appear to have some memory difficulties. I suspect he may have some mild cognitive impairment. I could put him on a memory medicine. Will see how he does here, but I think overall he looks well neurologically. I note he had an EEG ordered. I will follow up the results of that, but I think he could probably be discharged. It is unclear what brought on the sudden change in confusion. He said he did take some new medicine recently, although I am not sure which one that is. I think it is a good idea to back off on the sedating medications. I am not sure why he is taking Tegretol. We can check a level for that. It looks like that was stopped in the hospital. I can follow him up outpatient for some mild memory problems he is having. MD YESSENIA Castro/WALDO /3:28 PM /5:14 PM
[2017-07-23] MEDS: ENOXAPARIN SODIUM 40 MG/0.4 ML SYRINGE SQ SCH (18:04)
[2017-07-23] MEDS: PRAVASTATIN SOD 80 MG TAB PO SCH (20:58)
[2017-07-23] MEDS: TAMSULOSIN HCL 0.4 MG CAP PO SCH (20:59)
--- NOTE | 2017-07-23 21:21 | MG ---
cc: MIGUEL CHACKO M.D. Lab No: Date: 07/23/17 Age: 86 Sex: M Race: REQUESTING PHYSICIAN Dr. Treviño HISTORY An EEG was obtained on this 86-year-old patient, awake and drowsy being evaluated for encephalopathy, change in mentation. DESCRIPTION OF RECORD This EEG is showing low amplitude beta rhythms with artifact from movement. There is some intermixed theta with alpha activity in the central and posterior head regions. The background is reactive. Hyperventilation was not performed. The patient is in sleep stages one and two intermittently. Photic stimulation unremarkable. INTERPRETATION Mildly abnormal EEG because of the mild background slowing compatible with a mild diffuse disturbance of cerebral function. Miguel Chacko MD OFC/EO /6:42 PM /9:10 PM
[2017-07-24] VITALS (8 sets, daily range): BP systolic 151–171; BP diastolic 89–96; PULSE 76–84; RESP 14–20; TEMP 97.2–98; O2SAT 92–97
--- NOTE | 2017-07-24 00:09 | EKG ---
Date Performed: 07/22/2017 Time Performed: 11:02:59 PTAGE: 86 years EKG: Sinus rhythm WITH FIRST DEGREE AV BLOCK LEFT ANTERIOR FASCICULAR BLOCK LEFT VENTRICULAR HYPERTROPHY AND ST-T RIVERA GE BASELINE ARTIFACT LEAD V2 NOT READING PREVIOUS TRACING : 03/06/2017 09.16 Compared to prior tracing no significant change DOCTOR: Blayne Scott Interpretating Date/Time 07/24/2017 00:09:07
[2017-07-24] MEDS: SODIUM CHLOR 0.9% 1000 ML INJ 1,000 ML IV SCH (06:28)
[2017-07-24] MEDS: LEVOTHYROXINE SODIUM 50 MCG TAB PO SCH (06:30)
--- NOTE | 2017-07-24 07:21 | HHI.PR ---
Objective Vital Signs Date Time Temp Pulse Resp B/P (MAP) Pulse Ox O2 Delivery O2 Flow Rate FiO2 07/24/17 04:00 97.7 84 18 158/91 (113) 92 07/24/17 02:37 Room Air 07/24/17 00:00 98.0 78 20 170/96 (120) 97 07/23/17 20:00 97.2 81 20 148/90 (109) 96 07/23/17 20:00 82 07/23/17 16:00 97.7 71 20 162/87 (112) 94 07/23/17 12:00 97.7 81 20 154/77 (102) 94 07/23/17 09:56 95 07/23/17 08:00 97.6 78 20 153/84 (107) 95 07/23/17 08:00 75 I/O 07/23/17 07/23/17 07/23/17 07/24/17 07/24/17 07/24/17 07:00 15:00 23:00 07:00 15:00 23:00 Intake Total 1982 ml 1695 ml 1066 ml Output Total 300 ml 250 ml 2100 ml Balance 1682 ml 1445 ml -1034 ml Intake Oral 480 ml 360 ml IV Total 1982 ml 1215 ml 706 ml Output Urine Total 300 ml 250 ml 2100 ml Bladder Scan Volume Amount 256 ml # Bowel Movements 0 0 2 Result Diagram: 07/23/1710707/23/17107 Objective Remarks knows hospital not yr slept well Assessment and Plan Assessment and Plan imp eeg neg dementia start namendfran torres my office 8 weeks Dmitri Ocampo MD Jul 24, 2017 07:21
[2017-07-24] MEDS: DOCUSATE SODIUM 50 MG/SENNA 8.6 MG TAB PO SCH (08:54)
[2017-07-24] MEDS: amLODIPine BESYLATE 5 MG TAB PO SCH (08:54)
[2017-07-24] MEDS: FENOFIBRATE 48 MG TAB PO SCH (08:54)
[2017-07-24] MEDS: ASPIRIN 81 MG CHEW TAB CHEW SCH (08:54)
[2017-07-24] MEDS: MEMANTINE HCL 5 MG TAB PO SCH ×2 (09:00→14:30)
[2017-07-24] MEDS ORDERED: CYAN1TAB24 IM (11:06)
[2017-07-24] MEDS ORDERED: NAME5TAB2 PO (11:49)
[2017-07-24] MEDS ORDERED: AMLO5 PO (11:49)
--- NOTE | 2017-07-24 11:50 | HHI.DCPOC ---
Discharge Care Plan Diagnosis: (1) Altered mental status (2) HTN (hypertension) (3) Generalized weakness Goals to Promote Your Health * To prevent worsening of your condition and complications * To maintain your health at the optimal level Directions to Meet Your Goals Take your medications as prescribed Follow your dietary instruction Follow activity as directed Keep your appointments as scheduled Take your immunizations and boosters as scheduled If your symptoms worsen call your PCP, if no PCP go to Urgent Care Center or Emergency Room Smoking is Dangerous to Your Health. Avoid second hand smoke Call the 24-hour hour crisis hotline for domestic abuse at Amandeep Treviño DO Jul 24, 2017 11:50
--- NOTE | 2017-07-24 11:53 | HHI.FF ---
Face to Face Verification Diagnosis: (1) Dementia (2) HTN (hypertension) (3) Generalized weakness (4) Altered mental status Physical Therapy Order: Evaluate and Treat, Improve ambulation, Strength and gait training Home Health Nursing Order: Medical education Signs/symptoms of disease process Medication education-adverse effect Nursing assessment with vital signs I have seen patient Helio Joseph on 07/24/17. My clinical findings support the need for the requested home health care services because: Deconditioned w/ increased weakness Med compliance is questionable Limited ability to care for self Need for psychosocial assistance Impaired cognition/judgement I certify that my clinical findings support that this patient is homebound because: Impaired cognitive ability/safety Unsteady gait/balance Unsafe to leave home unassisted Need for psychosocial assistance Amandeep Treviño DO Jul 24, 2017 11:53
--- NOTE | 2017-07-24 11:56 | HHI.PR ---
Subjective Remarks The pt wanted to go home. He has been ambulating well. He reports some weakness. Daughter at the bedside. Their questions were answered. No acute concerns. Objective Vitals Vital Signs Date Time Temp Pulse Resp B/P (MAP) Pulse Ox O2 Delivery O2 Flow Rate FiO2 07/24/17 09:16 95 21 07/24/17 08:30 97.2 82 14 151/89 (109) 95 07/24/17 08:00 97.2 82 14 151/89 (109) 95 07/24/17 04:00 97.7 84 18 158/91 (113) 92 07/24/17 02:37 Room Air 07/24/17 00:00 98.0 78 20 170/96 (120) 97 07/23/17 20:00 97.2 81 20 148/90 (109) 96 07/23/17 20:00 82 07/23/17 16:00 97.7 71 20 162/87 (112) 94 07/23/17 12:00 97.7 81 20 154/77 (102) 94 I/O 07/23/17 07/23/17 07/23/17 07/24/17 07/24/17 07/24/17 07:00 15:00 23:00 07:00 15:00 23:00 Intake Total 1982 ml 1695 ml 1066 ml Output Total 300 ml 250 ml 2100 ml Balance 1682 ml 1445 ml -1034 ml Intake Oral 480 ml 360 ml IV Total 1982 ml 1215 ml 706 ml Output Urine Total 300 ml 250 ml 2100 ml Bladder Scan Volume Amount 256 ml # Bowel Movements 0 0 2 Result Diagram: 07/23/1710707/23/17107 Imaging Last Impressions Head CT 07/22/171058 Signed Impressions: Service Date/Time: Saturday, July 22, 2017 11:34 - CONCLUSION: Stable evaluation of the brain without evidence of acute infarct, hemorrhage, mass or edema. Advanced atherosclerotic vascular disease with arteriomegaly and calcific plaquing Mitchell Roque MD Chest X-Ray 07/22/17 1051 Signed Impressions: Service Date/Time: Saturday, July 22, 2017 11:11 - CONCLUSION: No acute disease. Mitchell Roque MD Carotid Artery Ultrasound 07/22/17 0000 Signed Impressions: Service Date/Time: Saturday, July 22, 2017 14:03 - CONCLUSION: 1. No hemodynamically significant carotid artery stenosis identified. 2. Calcified atherosclerotic plaquing of the bifurcations. Kush Fernandez MD Brain MRI 07/22/17 0000 Signed Impressions: Service Date/Time: Saturday, July 22, 2017 18:32 - CONCLUSION: 1. Bilateral cortical atrophy and chronic white matter changes. 2. No acute intracranial pathology. Josue Delgado MD Objective Remarks GENERAL: Well-developed well-nourished. In no acute distress. SKIN: Warm and dry. No lesions noted. HEENT: Normocephalic. Pupils equal and round and reactive to light. Mucous membranes pink and moist. CARDIOVASCULAR: Regular rate and rhythm. No murmur appreciated. RESPIRATORY: No accessory muscle use. Clear to auscultation. Breath sounds equal bilaterally. GASTROINTESTINAL: Abdomen soft, non-tender, nondistended. Bowel sounds x4. MUSCULOSKELETAL: No obvious deformities. No clubbing or cyanosis. No edema. NEUROLOGICAL: Alert and oriented. No focal neurological deficits. Moves upper and lower extremities spontaneously. Normal speech. PSYCHIATRIC: Appropriate mood and affect; insight and judgment normal. Medications and IVs Current Medications Medications (Trade) Dose Ordered Sig/Marion Route Start Time Stop Time Status Last Admin (Aspirin Chew) 81 mg DAILY CHEW 07/22/17 15:00 07/24/17 08:54 (Synthroid) 50 mcg DAILY@0600 PO 07/22/17 15:00 07/24/17 06:30 (Flomax) 0.4 mg HS PO 07/22/17 21:00 07/23/17 20:59 (Tricor) 48 mg DAILY PO 07/23/17 09:00 07/24/17 08:54 (Pravachol) 80 mg HS PO 07/22/17 21:00 07/23/17 20:58 Sodium Chloride 1,000 ml @ 75 mls/hr [id number] IV 07/22/17 13:15 07/24/17 06:28 (NS Flush) 2 ml UNSCH PRN IV FLUSH 07/22/17 13:15 (NS Flush) 2 ml BID IV FLUSH 07/22/17 21:00 07/22/17 21:36 (Tylenol) 650 mg Q4H PRN PO 07/22/17 13:15 (Lovenox Inj) 40 mg Q24H SQ 07/22/17 15:00 07/23/17 18:04 (Tylenol) 650 mg Q6H PRN PO 07/22/17 13:15 (Narcan Inj) 0.4 mg UNSCH PRN IV PUSH 07/22/17 13:15 (Marisela-Colace) 1 tab BID PO 07/22/17 21:00 07/24/17 08:54 (Vasotec Inj) 1.25 mg Q6H PRN IV PUSH 07/22/17 13:15 (Norvasc) 5 mg DAILY PO 07/23/17 12:00 07/24/17 08:54 (Namenda) 5 mg DAILY PO 07/24/17 09:00 A/P Assessment and Plan 86-year-old male with past medical history of HTN, HLD, CAD, hypothyroidism, depression, BPH, pituitary adenoma who presented for altered mental status Acute metabolic encephalopathy Resolved. Possibly s/t hypertensive encephalopathy or medication side effect. Reviewed: Head CT stable with age-related changes. Afebrile with no leukocytosis. Chest x-ray and UA unremarkable. Ammonia within normal limits. MRI without acute abnormality. Carotid US without significant blockage. Echo with EF 50-55%. EEG unremarkable. - Monitor on telemetry. Neuro checks. - s/p IVFs. - PT/OT/ST. D/c with [facility]. - Hold tizanidine. Pt no longer takes trazodone and carbamazepine. Accelerated hypertension Could contribute to symptoms as above. Given IV hydralazine and BP improved. He used to be on atenolol as an outpt. - start amlodipine 5 mg daily and monitor. Improved. - Continue home tamsulosin. - Vasotec as needed. Hypothyroidism TSH within normal limits. - Continue home levothyroxine. DVT prophylaxis: Lovenox Discharge Planning D/c with [facility]. Amandeep Treviño DO Jul 24, 2017 11:56
== END 2017-07-24 15:24 | disposition home health service (06) | DRG 71 ==
LOC: NEPC 10:47 → NEDA 12:43 → OBSVTOIN 13:23 → N04B 14:40
PROVIDERS: ADMIT Hospitalist; ATTEND Hospitalist
PROC: 0T9B70Z Drainage of Bladder with Drainage Device, Via Natural or Artificial Opening (ICD-10-PCS; principal; 2017-07-22)
DX: G93.41 Metabolic encephalopathy (principal); R47.01 Aphasia; I67.4 Hypertensive encephalopathy; F03.90 Unspecified dementia, unspecified severity, without behavioral disturbance, psychotic disturbance, mood disturbance, and anxiety; E11.9 Type 2 diabetes mellitus without complications; I10 Essential (primary) hypertension; G47.00 Insomnia, unspecified; K21.9 Gastro-esophageal reflux disease without esophagitis; Z87.11 Personal history of peptic ulcer disease; E78.00 Pure hypercholesterolemia, unspecified; Z79.01 Long term (current) use of anticoagulants; Z79.82 Long term (current) use of aspirin; I71.4 Abdominal aortic aneurysm, without rupture; F32.9 Major depressive disorder, single episode, unspecified; I25.10 Atherosclerotic heart disease of native coronary artery without angina pectoris; E03.9 Hypothyroidism, unspecified; N40.0 Benign prostatic hyperplasia without lower urinary tract symptoms; D35.2 Benign neoplasm of pituitary gland
CPT/HCPCS: 51702; 70450; 70551; 71010; 80053; 80061; 80156; 81001; 82140; 82306; 82550; 82607; 83605; 84443; 84484; 85025; 85610; 85730; 87040; 93005; 93306; 93880; 95819; 96374; J0360; J1650; J2405; J7030